=== PATIENT | female | born 1995 | race Caucasian/White ===

== ENCOUNTER 2020-04-26 15:41 | Emergency (ER) | payer MEDICAID ==
[~2020-04-26] VITALS: Ht 182.9 cm; Wt 78.2 kg
[2020-04-26 15:45] VITALS: Ht 182.9 cm; Wt 78.2 kg
[2020-04-26 16:30] VITALS: BP 126/84
[2020-04-26] MEDS ORDERED: TORADOL10 MG PO (16:54)
[2020-04-26] MEDS ORDERED: METHOCARBAMOL500 MG PO (16:54)
== END 2020-04-26 17:25 | disposition home or self-care (01) ==
LOC: D.ER 15:41
DX: S00.83XA Contusion of other part of head, initial encounter (principal); V49.9XXA Car occupant (driver) (passenger) injured in unspecified traffic accident, initial encounter; S16.1XXA Strain of muscle, fascia and tendon at neck level, initial encounter; S50.01XA Contusion of right elbow, initial encounter